=== PATIENT | female | born 1995 | race Caucasian/White ===

== ENCOUNTER 2018-08-05 10:14 | Emergency (ER) | payer BC | END 2018-08-05 12:02 | disposition home or self-care (01) | LOC: FTE 10:14 | DX: S61.213A Laceration without foreign body of left middle finger without damage to nail, initial encounter (principal); W26.8XXA Contact with other sharp object(s), not elsewhere classified, initial encounter; Y92.9 Unspecified place or not applicable | CPT/HCPCS: 12001; 99283-25 ==